=== PATIENT | male | born 1955 | race Caucasian/White ===

== ENCOUNTER 2018-01-29 08:07 | Inpatient (IN) | payer MEDICARE, OTHER ==
[2018-01-29] MEDS ORDERED: Sodium Chloride 0.9% 1,000 ML IV ONE (08:10)
[2018-01-29] MEDS ORDERED: Albuterol/Ipratropium 3.0-0.5 MG/3 ML Neb Soln NEB ONE (08:10)
[2018-01-29] MEDS ORDERED: Sodium Chloride 0.9% 10 ML Syringe FLUSH PRN (08:10)
[2018-01-29] MEDS ORDERED: Ketorolac 30 MG/ML SDV IVPUSH ONE (08:10)
[2018-01-29] MEDS ORDERED: Sodium Chloride 0.9% 2.5 ML Syringe FLUSH PRN (08:10)
--- NOTE | 2018-01-29 10:02 | EDM.PDOC ---
ED HPI GENERAL MEDICAL PROBLEM - General Chief Complaint: Respiratory Problem Stated Complaint: AMBULANCE Time Seen by Provider: 01/29/18 08:10 Source of Information: Reports: Patient History Limitations: Reports: No Limitations - History of Present Illness INITIAL COMMENTS - FREE TEXT/NARRATIVE: History of present illness: []Patient has not been eating solid food for weeks and has not been drinking was brought in by ambulance after his called because he was having shortness of breath. He is a very weak and can barely talk but he denies any fevers or chest pain. Review of systems: As per history of present illness and below otherwise all systems reviewed and negative. Past medical history: As per history of present illness and as reviewed below otherwise noncontributory. Surgical history: As per history of present illness and as reviewed below otherwise noncontributory. Social history: No reported history of drug or alcohol abuse. Family history: As per history of present illness and as reviewed below otherwise noncontributory. Physical exam: General: Well developed, cachectic HEENT: Atraumatic, normocephalic, pupils reactive, negative for conjunctival pallor or scleral icterus, mucous membranes dry, throat clear, neck supple, nontender, trachea midline. Lungs: Wheezing to auscultation, decreased breath sounds equal bilaterally, chest nontender. Respiratory distress Heart: S1S2, regular, negative for clicks, rubs, or JVD. Abdomen: Scaphoid Soft, nondistended, nontender. Negative for masses or hepatosplenomegaly. Negative for costovertebral tenderness. Pelvis: Stable nontender. Genitourinary: Deferred. Rectal: Deferred. Extremities: Atraumatic, negative for cords or calf pain. Neurovascular unremarkable. Neuro: Awake, alert, oriented. Weak lower extremities bilaterally Diagnostics: []CBC shows elevated white count 18,000 with a shift, chemistries show dehydration when necessary and 60 creatinine of 1.3, calcium is elevated at 18 chest x-ray shows hyperinflation left mid opacity suggestive of cancer or adenopathy and possible infiltrate. Therapeutics: []DuoNeb given IV hydration, Toradol for pain Impression: []. Failure To thrive, pneumonia, possible underlying lung malignancy Plan: []Admit for IV hydration and further workup Definitive disposition and diagnosis as appropriate pending reevaluation and review of above. Bilateral Leg Pain Score (Numeric/FACES): 8 - Related Data Allergies Allergy/AdvReac Type Severity Reaction Status Date / Time No Known Allergies Allergy Verified 09/17/14 10:50 Home Meds: Home Meds Albuterol [Ventolin HFA] 1 puff INH ASDIRECTED 01/29/18 [History] Cyclobenzaprine [Flexeril] 5 mg PO TID 01/29/18 [History] Ipratropium/Albuterol Sulfate [Combivent Respimat Inhal [place]] 1 puff INH ASDIRECTED 01/29/18 [History] Mirtazapine 1 tab PO BEDTIME 01/29/18 [History] Tamsulosin [Flomax] 1 cap PO DAILY 01/29/18 [History] Past Medical History Respiratory History: Reports: COPD - Past Surgical History GI Surgical History: Reports: Hernia, Abdominal Other Male Surgeries/Procedures: Urinary Incontinence Social & Family History - Family History Family Medical History: Noncontributory - Tobacco Use Smoking Status *Q: Former Smoker Years of Tobacco use: 55 Packs/Tins Daily: 1 Used Tobacco, but Quit: Yes Month Tobacco Last Used: 12/2017 - Caffeine Use Caffeine Use: Reports: Soda - Recreational Drug Use Recreational Drug Use: No ED ROS GENERAL - Review of Systems Review Of Systems: See Below (The history of present illness) ED EXAM, GENERAL - Physical Exam Exam: See Below (See history of present illness) Course - Vital Signs Last Recorded V/S: Last Vital Signs Temp 98.4 F 01/29/18 11:40 Pulse 106 H 01/29/18 11:40 Resp 26 H 01/29/18 11:40 BP 140/101 H 01/29/18 11:40 Pulse Ox 100 01/29/18 12:06 - Orders/Labs/Meds Orders: Active Orders 24 hr Category Date Time Status EKG Documentation Completion [RC] STAT Care 01/29/18 10:04 Active RT Aerosol Therapy [RC] ASDIRECTED Care 01/29/18 08:11 Active Chest 1V Frontal [CR] Stat Exams 01/29/18 08:14 Taken CULTURE BLOOD [BC] Stat Lab 01/29/18 09:23 Results CULTURE BLOOD [BC] Stat Lab 01/29/18 10:53 Results UA W/MICROSCOPIC [URIN] Stat Lab 01/29/18 08:10 Ordered Sodium Chloride 0.9% [Saline Flush] Med 01/29/18 08:10 Active 10 ml FLUSH ASDIRECTED PRN Sodium Chloride 0.9% [Saline Flush] Med 01/29/18 08:10 Active 2.5 ml FLUSH ASDIRECTED PRN Blood Culture x2 Reflex Set [OM.PC] Stat Ot 01/29/18 10:08 Ordered Saline Lock Insert [OM.PC] Stat Ot 01/29/18 08:10 Ordered Medication Orders Acetaminophen (Tylenol) 650 mg PO Q4H PRN PRN Reason: Pain (Mild 1-3)/fever Hydrocodone Bitart/Acetaminophen ([place] 325-5 Mg) 1 tab PO Q4H PRN PRN Reason: Pain (moderate 4-6) Albuterol (Ventolin Hfa) 8 gm INH ASDIRECTED [facility] Albuterol/Ipratropium (Combivent Respimat) 4 gm INH ASDIRECTED [facility] Albuterol/Ipratropium (Duoneb 3.0-0.5 Mg/3 Ml) 3 ml NEB Q6HRRT PRN PRN Reason: Shortness of Breath Cyclobenzaprine HCl (Flexeril) 5 mg PO TID [facility] Last Admin: 01/29/18 13:06 Dose: 5 mg Heparin Sodium (Porcine) (Heparin Sodium) 5,000 units SUBCUT Q12H [facility] Last Admin: 01/29/18 12:59 Dose: 5,000 units Sodium Chloride (Normal Saline) 1,000 mls @ 250 mls/hr IV ASDIRECTED [facility] Last Admin: 01/29/18 12:56 Dose: 250 mls/hr Ceftriaxone Sodium/Dextrose 1 (gm/ Premix) 50 mls @ 100 mls/hr IV Q24H [facility] Azithromycin 500 mg/ Sodium (Chloride) 250 mls @ 250 mls/hr IV Q24H [facility] Last Admin: 01/29/18 14:03 Dose: 250 mls/hr Mirtazapine (Remeron) 15 mg PO BEDTIME [facility] Morphine Sulfate (Morphine) 2 mg IVPUSH Q2H PRN PRN Reason: Pain (severe 7-10) Stop: 01/30/18 11:42 Nicotine (Habitrol) 7 mg TRDERM Q24H [facility] Ondansetron HCl (Zofran Odt) 4 mg PO Q4H PRN PRN Reason: nausea, able to take PO Ondansetron HCl (Zofran) 4 mg IVPUSH Q4H PRN PRN Reason: Nausea Sodium Chloride (Saline Flush) 10 ml FLUSH ASDIRECTED PRN PRN Reason: Keep Vein Open Sodium Chloride (Saline Flush) 2.5 ml FLUSH ASDIRECTED PRN PRN Reason: Keep Vein Open Labs: Laboratory Tests 01/29/18 01/29/18 01/29/18 Range/Units 08:47 09:37 09:37 WBC 18.83 H (4.0-11.0) K/uL RBC 6.31 H (4.50-5.90) M/uL Hgb 17.7 H (13.0-17.0) g/dL Hct 53.7 H (38.0-50.0) % MCV 85.1 (80.0-98.0) fL MCH 28.1 (27.0-32.0) pg MCHC 33.0 (31.0-37.0) g/dL RDW Std Deviation 44.3 (28.0-62.0) fl RDW Coeff of Darnell 15 (11.0-15.0) % Plt Count 157 (150-400) K/uL MPV 11.00 (7.40-12.00) fL Neut % (Auto) 88.0 H (48.0-80.0) % Lymph % (Auto) 5.5 L (16.0-40.0) % [place] % (Auto) 6.4 (0.0-15.0) % Eos % (Auto) 0.0 (0.0-7.0) % Baso % (Auto) 0.1 (0.0-1.5) % Neut # (Auto) 16.6 H (1.4-5.7) K/uL Lymph # (Auto) 1.0 (0.6-2.4) K/uL [place] # (Auto) 1.2 H (0.0-0.8) K/uL Eos # (Auto) 0.0 (0.0-0.7) K/uL Baso # (Auto) 0.0 (0.0-0.1) K/uL Nucleated RBC % 0.0 /100WBC Nucleated RBCs # 0 K/uL Sodium 141 (136-148) mmol/L Potassium 4.4 (3.5-5.1) mmol/L Chloride 102 (98-107) mmol/L Carbon Dioxide 24.3 (21.0-32.0) mmol/L BUN 69 H (7.0-18.0) mg/dL Creatinine 1.3 (0.8-1.3) mg/dL Est Cr Clr Drug Dosing 29.46 mL/min Estimated GFR (MDRD) 55.6 ml/min Glucose 102 (74-106) mg/dL Calcium 18.1 H (8.5-10.1) mg/dL Phosphorus 4.9 H (2.6-4.7) mg/dL Magnesium 1.9 (1.5-2.0) mg/dL Total Bilirubin 0.6 (0.2-1.0) mg/dL AST 35 (15-37) IU/L ALT 25 (14-63) IU/L Alkaline Phosphatase 109 (46-116) U/L Total Protein 6.8 (6.4-8.2) g/dL Albumin 3.0 L (3.4-5.0) g/dL Globulin 3.8 H (2.0-3.5) g/dL Albumin/Globulin Ratio 0.8 L (1.3-2.8) Meds: Medications Generic Name Dose Route Start Last Admin Trade Name Freq PRN Reason Stop Dose Admin Acetaminophen 650 mg 01/29/18 11:40 Tylenol PO Q4H PRN Pain (Mild 1-3)/fever Hydrocodone Bitart/Acetaminophen 1 tab 01/29/18 11:40 [place] 325-5 Mg PO Q4H PRN Pain (moderate 4-6) Albuterol 8 gm 01/29/18 12:15 Ventolin Hfa INH ASDIRECTED RASHIDA Albuterol/Ipratropium 4 gm 01/29/18 12:15 Combivent Respimat INH ASDIRECTED RASHIDA Albuterol/Ipratropium 3 ml 01/29/18 12:05 Duoneb 3.0-0.5 Mg/3 Ml NEB Q6HRRT PRN Shortness of Breath Cyclobenzaprine HCl 5 mg 01/29/18 14:00 01/29/18 13:06 Flexeril PO 5 mg TID RASHIDA Administration Heparin Sodium (Porcine) 5,000 units 01/29/18 11:45 01/29/18 12:59 Heparin Sodium SUBCUT 5,000 units Q12H RASHIDA Administration Sodium Chloride 1,000 mls @ 250 mls/hr 01/29/18 11:15 01/29/18 12:56 Normal Saline IV 250 mls/hr ASDIRECTED RASHIDA Administration Ceftriaxone Sodium/Dextrose 1 50 mls @ 100 mls/hr 01/30/18 11:00 gm/ Premix IV Q24H RASHIDA Azithromycin 500 mg/ Sodium 250 mls @ 250 mls/hr 01/29/18 14:02 01/29/18 14: 03 Chloride IV 250 mls/hr Q24H RASHIDA Administration Mirtazapine 15 mg 01/29/18 21:00 Remeron PO BEDTIME RASHIDA Morphine Sulfate 2 mg 01/29/18 11:40 Morphine IVPUSH 01/30/18 11:42 Q2H PRN Pain (severe 7-10) Nicotine 7 mg 01/30/18 09:00 Habitrol TRDERM Q24H RASHIDA Ondansetron HCl 4 mg 01/29/18 11:40 Zofran Odt PO Q4H PRN nausea, able to take PO Ondansetron HCl 4 mg 01/29/18 11:40 Zofran IVPUSH Q4H PRN Nausea Sodium Chloride 10 ml 01/29/18 08:10 Saline Flush FLUSH ASDIRECTED PRN Keep Vein Open Sodium Chloride 2.5 ml 01/29/18 08:10 Saline Flush FLUSH ASDIRECTED PRN Keep Vein Open Discontinued Medications Generic Name Dose Route Start Last Admin Trade Name Freq PRN Reason Stop Dose Admin Albuterol/Ipratropium 3 ml 01/29/18 08:10 01/29/18 08:53 Duoneb 3.0-0.5 Mg/3 Ml NEB 01/29/18 08:11 3 ml ONETIME ONE Administration Sodium Chloride 1,000 mls @ 999 mls/hr 01/29/18 08:10 01/29/18 08:49 Normal Saline IV 01/29/18 09:10 250 mls/hr .Bolus ONE Administration Ceftriaxone Sodium/Dextrose 1 50 mls @ 100 mls/hr 01/29/18 10:19 01/29/18 10: 58 gm/ Premix IV 01/29/18 10:48 100 mls/hr ONETIME ONE Administration Azithromycin 500 mg/ Sodium 100 mls @ 100 mls/hr 01/29/18 13:30 01/29/18 14: 42 Chloride IV Not Given Q24H [facility] Ketorolac Tromethamine 15 mg 01/29/18 08:10 01/29/18 08:45 Toradol IVPUSH 01/29/18 08:11 15 mg ONETIME ONE Administration Departure - Departure Time of Disposition: 10:18 Disposition: Admitted As Inpatient 64 Condition: Good Clinical Impression: Failure to thrive, Pneumonia, Lung mass - Discharge Information - My Orders Last 24 Hours: My Active Orders 01/29/18 08:10 UA W/MICROSCOPIC [URIN] Stat Sodium Chloride 0.9% [Saline Flush] 10 ml FLUSH ASDIRECTED PRN Sodium Chloride 0.9% [Saline Flush] 2.5 ml FLUSH ASDIRECTED PRN Saline Lock Insert [OM.PC] Stat 01/29/18 08:11 RT Aerosol Therapy [RC] ASDIRECTED 01/29/18 08:14 Chest 1V Frontal [CR] Stat 01/29/18 09:23 CULTURE BLOOD [BC] Stat 01/29/18 10:04 EKG Documentation Completion [RC] STAT 01/29/18 10:08 Blood Culture x2 Reflex Set [OM.PC] Stat 01/29/18 10:53 CULTURE BLOOD [BC] Stat - Assessment/Plan Last 24 Hours: My Active Orders 01/29/18 08:10 UA W/MICROSCOPIC [URIN] Stat Sodium Chloride 0.9% [Saline Flush] 10 ml FLUSH ASDIRECTED PRN Sodium Chloride 0.9% [Saline Flush] 2.5 ml FLUSH ASDIRECTED PRN Saline Lock Insert [OM.PC] Stat 01/29/18 08:11 RT Aerosol Therapy [RC] ASDIRECTED 01/29/18 08:14 Chest 1V Frontal [CR] Stat 01/29/18 09:23 CULTURE BLOOD [BC] Stat 01/29/18 10:04 EKG Documentation Completion [RC] STAT 01/29/18 10:08 Blood Culture x2 Reflex Set [OM.PC] Stat 01/29/18 10:53 CULTURE BLOOD [BC] Stat
--- NOTE | 2018-01-29 10:13 | PCM.HP ---
H&P History of Present Illness - General Date of Service: 01/29/18 Admit Problem/Dx: Admission Diagnosis/Problem Admission Diagnosis/Problem Failure to thrive Source of Information: Patient, Family, Provider History Limitations: Reports: No Limitations - History of Present Illness Initial Comments - Free Text/Narative: 62-year-old male presenting to emergency department by EMS with chief complaint of fatigue and loss of appetite for multiple weeks with past medical history of severe COPD on home O2, BPH, and chronic back pain. Patient presented to emergency department by ambulance after his called secondary to patient having increased shortness of breath. He was also noted to be very weak and could barely talk. states that he has been not eating for the past several weeks and only drinking in some fluids. He denies any chest pain, palpitations, fever, chills, diarrhea, syncopal episodes, or focal neurologic deficits. Patient has a history of severe COPD and is on home oxygen from anywhere from 2-4 L per nasal cannula. He is treated at the [facility]. Emergency department: Leukocytosis of 18.8 3K, severe hypercalcemia of 18.1 with albumin low at 3.0 resulting in corrected calcium of 18.9. Chest x-ray revealing markedly hyperinflated findings consistent with COPD with moderate emphysematous changes. There was also a moderately large sized masslike opacity projected in the left mid chest medially that covers 8-9 cm most consistent with mass and/or adenopathy. Malignancy could not be excluded specifically a primary lung carcinoma with left hilar adenopathy. CT with IV contrast was suggested. There were also components of pneumonia in the left perihilar region. In addition there are small nodular opacities right mid lung lateral that were nonspecific. Patient was admitted for suspected community acquired pneumonia and failure to thrive. Bilateral Leg Pain Score (Numeric/FACES): 8 - Related Data Allergies/Adverse Reactions: Allergies Allergy/AdvReac Type Severity Reaction Status Date / Time No Known Allergies Allergy Verified 09/17/14 10:50 Home Medications: Home Meds Albuterol [Ventolin HFA] 1 puff INH ASDIRECTED 01/29/18 [History] Cyclobenzaprine [Flexeril] 5 mg PO TID 01/29/18 [History] Ipratropium/Albuterol Sulfate [Combivent Respimat Inhal [place]] 1 puff INH ASDIRECTED 01/29/18 [History] Mirtazapine 1 tab PO BEDTIME 01/29/18 [History] Tamsulosin [Flomax] 1 cap PO DAILY 01/29/18 [History] Past Medical History Respiratory History: Reports: COPD - Past Surgical History GI Surgical History: Reports: Hernia, Abdominal Other Male Surgeries/Procedures: Urinary Incontinence Social & Family History - Family History Family Medical History: Noncontributory - Tobacco Use Smoking Status *Q: Former Smoker Years of Tobacco use: 55 Packs/Tins Daily: 1 Used Tobacco, but Quit: Yes Month Tobacco Last Used: 12/2017 - Caffeine Use Caffeine Use: Reports: Soda - Recreational Drug Use Recreational Drug Use: No H&P Review of Systems - Review of Systems: Review Of Systems: See Below General: Reports: Malaise, Weakness, Fatigue, Weight Loss (50 ). Denies: Fever , Chills HEENT: Reports: Dysphasia. Denies: Headaches, Sore Throat Pulmonary: Reports: Shortness of Breath, Wheezing, Cough. Denies: Sputum Cardiovascular: Denies: Chest Pain, Palpitations, Edema Gastrointestinal: Reports: Nausea. Denies: Abdominal Pain, Black Stool, Bloody Stool, Vomiting Genitourinary: Denies: Dysuria, Hematuria Musculoskeletal: Reports: Back Pain, Leg Pain. Denies: Neck Pain Skin: Reports: Dryness. Denies: Cyanosis Psychiatric: Reports: Mood Lability. Denies: Confusion, Depression Neurological: Reports: Difficulty Walking. Denies: Confusion, Dizziness, Headache Hematologic/Lymphatic: Denies: Anemia Immunologic: Denies: Anaphylaxis Exam - Exam Exam: See Below - Vital Signs Vital Signs: Last Vital Signs Temp 97.7 F 01/29/18 08:10 Pulse 116 H 01/29/18 08:10 Resp 36 H 01/29/18 08:10 BP 150/84 H 01/29/18 08:10 Pulse Ox 100 01/29/18 08:10 Weight: 36.287 kg - Exam Quality Assessment: Supplemental Oxygen, DVT Prophylaxis General: Alert, Oriented, Cooperative HEENT: Conjunctiva Clear, EACs Clear, EOMI, Hearing Intact, Mucosa Moist & [place] , Nares Patent, Normal Nasal Septum, Posterior Pharynx Clear, PERRLA Neck: Supple, Trachea Midline, 2 Lungs: Decreased Breath Sounds, Crackles, Rales, Wheezing Cardiovascular: Regular Rhythm, Normal S1, Normal S2, Tachycardia, Systolic Murmur GI/Abdominal Exam: Normal Bowel Sounds, Soft, Non-Tender, No Organomegaly, No Distention (Male) Exam: Deferred Rectal (Males) Exam: Deferred Back Exam: Vertebral Tenderness Extremities: Normal Inspection, Non-Tender, No Pedal Edema, Normal Capillary Refill Peripheral Pulses: 1+: Radial (L), Radial (R), Posterior Tibial (L), Posterior Tibial (R), Dorsalis Pedis (L), Dorsalis Pedis (R) Skin: Warm, Dry, Intact Neurological: Cranial Nerves Intact Neuro Extensive - Mental Status: Alert, Oriented x3, Normal Mood/Affect, Normal Cognition Neuro Extensive - Motor, Sensory, Reflexes: CN II-XII Intact Psychiatric: Alert, Normal Affect, Labile Mood - Patient Data Lab Results Last 24 hrs: Laboratory Results - last 24 hr 01/29/18 01/29/18 Range/Units 08:47 09:37 WBC 18.83 H (4.0-11.0) K/uL RBC 6.31 H (4.50-5.90) M/uL Hgb 17.7 H (13.0-17.0) g/dL Hct 53.7 H (38.0-50.0) % MCV 85.1 (80.0-98.0) fL MCH 28.1 (27.0-32.0) pg MCHC 33.0 (31.0-37.0) g/dL RDW Std Deviation 44.3 (28.0-62.0) fl RDW Coeff of Darnell 15 (11.0-15.0) % Plt Count 157 (150-400) K/uL MPV 11.00 (7.40-12.00) fL Neut % (Auto) 88.0 H (48.0-80.0) % Lymph % (Auto) 5.5 L (16.0-40.0) % [place] % (Auto) 6.4 (0.0-15.0) % Eos % (Auto) 0.0 (0.0-7.0) % Baso % (Auto) 0.1 (0.0-1.5) % Neut # (Auto) 16.6 H (1.4-5.7) K/uL Lymph # (Auto) 1.0 (0.6-2.4) K/uL [place] # (Auto) 1.2 H (0.0-0.8) K/uL Eos # (Auto) 0.0 (0.0-0.7) K/uL Baso # (Auto) 0.0 (0.0-0.1) K/uL Nucleated RBC % 0.0 /100WBC Nucleated RBCs # 0 K/uL Sodium 141 (136-148) mmol/L Potassium 4.4 (3.5-5.1) mmol/L Chloride 102 (98-107) mmol/L Carbon Dioxide 24.3 (21.0-32.0) mmol/L BUN 69 H (7.0-18.0) mg/dL Creatinine 1.3 (0.8-1.3) mg/dL Est Cr Clr Drug Dosing 29.46 mL/min Estimated GFR (MDRD) 55.6 ml/min Glucose 102 (74-106) mg/dL Calcium 18.1 H (8.5-10.1) mg/dL Total Bilirubin 0.6 (0.2-1.0) mg/dL AST 35 (15-37) IU/L ALT 25 (14-63) IU/L Alkaline Phosphatase 109 (46-116) U/L Total Protein 6.8 (6.4-8.2) g/dL Albumin 3.0 L (3.4-5.0) g/dL Globulin 3.8 H (2.0-3.5) g/dL Albumin/Globulin Ratio 0.8 L (1.3-2.8) Result Diagrams: 01/29/18 08:47 01/29/18 09:37 *Q Meaningful Use (ADM) - VTE *Q VTE Criteria *Q: - Stroke *Q Stroke Criteria *Q: - AMI *Q AMI Criteria *Q: - Problem List (1) Community acquired pneumonia SNOMED Code(s): 167032537 ICD Code: J18.9 - PNEUMONIA, UNSPECIFIED ORGANISM Status: Acute Priority : High Current Visit: Yes Qualifiers: Laterality: left Lung location: unspecified part of lung Qualified Code(s ): J18.9 - Pneumonia, unspecified organism (2) Hypercalcemia of malignancy SNOMED Code(s): 92725449 ICD Code: E83.52 - HYPERCALCEMIA Status: Suspected Priority: High Current Visit: Yes (3) End stage chronic obstructive pulmonary disease SNOMED Code(s): 581129132 ICD Code: J44.9 - CHRONIC OBSTRUCTIVE PULMONARY DISEASE, UNSPECIFIED Status : Chronic Priority: Medium Current Visit: Yes (4) Chronic back pain SNOMED Code(s): 894758889 ICD Code: M54.9 - DORSALGIA, UNSPECIFIED; G89.29 - OTHER CHRONIC PAIN Status: Chronic Priority: Low Current Visit: Yes Qualifiers: Back pain location: low back pain Back pain laterality: bilateral Sciatica presence: with sciatica Sciatica laterality: sciatica laterality unspecified Qualified Code(s): M54.40 - Lumbago with sciatica, unspecified side; G89.29 - Other chronic pain; G89.29 - Other chronic pain (5) Failure to thrive SNOMED Code(s): 63363986 ICD Code: [id number] - Status: Acute Priority: High Current Visit: Yes Qualifiers: Failure to thrive age range: in adult Qualified Code(s): R62.7 - Adult failure to thrive Problem List Initiated/Reviewed/Updated: Yes Orders Last 24hrs: Active Orders 24 hr Category Date Time Status Patient Status [ADT] Stat ADT 01/29/18 10:09 Active EKG Documentation Completion [RC] STAT Care 01/29/18 10:04 Active RT Aerosol Therapy [RC] ASDIRECTED Care 01/29/18 08:11 Active Chest 1V Frontal [CR] Stat Exams 01/29/18 08:14 Taken CULTURE BLOOD [BC] Stat Lab 01/29/18 10:08 Ordered CULTURE BLOOD [BC] Stat Lab 01/29/18 10:08 Ordered UA W/MICROSCOPIC [URIN] Stat Lab 01/29/18 08:10 Ordered Sodium Chloride 0.9% [Saline Flush] Med 01/29/18 08:10 Active 10 ml FLUSH ASDIRECTED PRN Sodium Chloride 0.9% [Saline Flush] Med 01/29/18 08:10 Active 2.5 ml FLUSH ASDIRECTED PRN Blood Culture x2 Reflex Set [OM.PC] Stat Oth 01/29/18 10:08 Ordered Saline Lock Insert [OM.PC] Stat Oth 01/29/18 08:10 Ordered Medication Orders Sodium Chloride (Saline Flush) 10 ml FLUSH ASDIRECTED PRN PRN Reason: Keep Vein Open Sodium Chloride (Saline Flush) 2.5 ml FLUSH ASDIRECTED PRN PRN Reason: Keep Vein Open Assessment/Plan Comment:: 62-year-old male admitted 01/29/18 for suspected community acquired pneumonia and failure to thrive found to have severe hypercalcemia with past medical history of COPD and long-term smoking. Community acquired pneumonia: Leukocytosis of 18.83k with increased shortness of breath most likely suggesting CAP. Will treat with azithromycin and Rocephin. Continue to monitor closely and have ordered DuoNeb's. Patient currently is on 2 L per nasal cannula and will hold off on steroids at this time but may need them in the future. Failure to thrive/lung mass: Patient has several weeks of decreased oral intake. He appears cachectic. Patient is treated at the [facility] and states that they did get a chest CT in November. We were able to get those records which showed a solitary left perihilar 5.7 cm pulmonary mass consistent with primary lung cancer. The mass contacts and invades the mediastinum and left hilum but otherwise there were no enlarged mediastinal lymph nodes or evidence of distal metastatic disease. There was also findings of hyperinflation of the lungs evident of emphysema. I did discuss this with the patient and his who stated that they "had a feeling" that he had cancer. Patient states that he does want to be DNR DNI at this time. I did suggest that we should talk to oncology and have them discuss further studies and options with them which there amiable to. We'll hold off at this time from getting CT but may consider CT with contrast for further evaluation of lung mass. does also mention a 50 lb weight loss over the past several months. Hypercalcemia: Most likely related to malignancy. Severe 18.9 corrected calcium. Will start IV normal saline at 250 mL per hour with goal of urine output of 100-150 mL/h. Patient does not have any sign of renal or heart failure so we'll hold off on using loupe diuretics at this time. We have rechecked calcium which is still elevated at 16. We will begin calcitonin 4 units per kilogram IM every 12 hours as well as zoledronic acid 4 mg IV over 15 minutes. Will monitor Calcium q 4 hrs. I've also ordered parathyroid hormone but most likely related to malignancy. Severe COPD: Currently patient is on his regular home oxygen of 2 L per nasal cannula. Will watch closely and have ordered DuoNeb's. Will consider steroids if any further was worsening of respiratory status. Will restart his home medications. VTE: Heparin, SCD Dispo:3-4 days pending
[2018-01-29] MEDS ORDERED: cefTRIAXone 1 GM in Premix Bag 1 BAG IV ONE (10:19)
[2018-01-29] MEDS ORDERED: Ondansetron 4 MG Tab.DIS PO PRN (11:40)
[2018-01-29] MEDS ORDERED: Acetaminophen/HYDROcodone 325-5 MG Tab PO PRN (11:40)
[2018-01-29] MEDS ORDERED: Ondansetron 4 MG/2 ML SDV IVPUSH PRN (11:40)
[2018-01-29] MEDS ORDERED: Acetaminophen 325 MG Tab PO PRN (11:40)
[2018-01-29] MEDS ORDERED: Morphine 2 MG/ML Syringe IVPUSH PRN (11:40)
[2018-01-29] MEDS ORDERED: Albuterol/Ipratropium 3.0-0.5 MG/3 ML Neb Soln NEB PRN (12:05)
[2018-01-29] MEDS ORDERED: Albuterol/Ipratropium 4 GM Inhalation Spray INH SCH (12:15)
[2018-01-29] MEDS ORDERED: Albuterol 8 GM Inhaler INH SCH (12:15)
[2018-01-29] MEDS: Sodium Chloride 0.9% 1,000 ML IV SCH ×3 (12:56→22:41)
[2018-01-29] MEDS: Heparin Sodium 5,000 Units/ML Vial SUBCUT SCH (12:59)
[2018-01-29] MEDS: Cyclobenzaprine 10 MG Tab PO SCH ×2 (13:06→21:38)
[2018-01-29] MEDS ORDERED: Azithromycin 500 MG in Sodium Chloride 0.9% 250 ML IV SCH (14:02)
[2018-01-29] MEDS ORDERED: Calcitonin (Salmon) 200 Units/ML 2 ML MDV SUBCUT ONE (17:00)
[2018-01-29] MEDS ORDERED: Zoledronic Acid in Water 4 MG in Premix Bag 1 BAG IV ONE ×2 (17:00)
[2018-01-29] MEDS ORDERED: Mirtazapine 15 MG Tab PO SCH (21:00)
[2018-01-30] MEDS: Heparin Sodium 5,000 Units/ML Vial SUBCUT SCH ×2 (01:11→01:14)
[2018-01-30] MEDS: Sodium Chloride 0.9% 1,000 ML IV SCH (02:50)
[2018-01-30] MEDS: Cyclobenzaprine 10 MG Tab PO SCH (06:27)
[2018-01-30] MEDS: Nicotine 7 MG/24 Hr Patch TRDERM SCH (08:27)
[2018-01-30] MEDS ORDERED: Sodium Polystyrene Sulfonate 15 GM/60 ML Susp 60 ML Bot PO ONE (08:54)
[2018-01-30] MEDS ORDERED: Dextrose 5%-0.45% NaCl 1,000 ML IV SCH (09:00)
[2018-01-30] MEDS ORDERED: Insulin Regular, Human 100 Units/ML 10 ML Vial IVPUSH ONE (09:03)
[2018-01-30] MEDS ORDERED: 50% Dextrose in Water 50 ML Syringe IVPUSH ONE (09:03)
[2018-01-30] MEDS ORDERED: LORazepam 2 MG/ML SDV IVPUSH PRN (10:39)
[2018-01-30] MEDS ORDERED: Morphine 2 MG/ML Syringe IVPUSH PRN (10:40)
--- NOTE | 2018-01-30 10:41 | PCM.PN ---
- General Info Date of Service: 01/30/18 Admission Dx/Problem (Free Text): Admission Diagnosis/Problem Admission Diagnosis/Problem Failure to thrive Subjective Update: Nearly unresponsive, opens eyes to pain, does not verbally respond. not at bedside early this morning. - Patient Data Vitals - Most Recent: Last Vital Signs Temp 97.6 F 01/30/18 08:00 Pulse 76 01/30/18 08:00 Resp 18 01/30/18 08:00 BP 101/87 01/30/18 08:00 Pulse Ox 95 01/30/18 08:00 Weight - Most Recent: 36.287 kg I&O - Last 24 Hours: Intake & Output 01/29/18 01/30/18 01/30/18 22:59 06:59 14:59 Intake Total 1310 3306 Balance 1310 3306 Lab Results Last 24 Hours: Laboratory Results - last 24 hr 01/29/18 01/29/18 01/29/18 Range/Units 14:31 18:02 21:52 WBC (4.0-11.0) K/uL RBC (4.50-5.90) M/uL Hgb (13.0-17.0) g/dL Hct (38.0-50.0) % MCV (80.0-98.0) fL MCH (27.0-32.0) pg MCHC (31.0-37.0) g/dL RDW Std Deviation (28.0-62.0) fl RDW Coeff of Darnell (11.0-15.0) % Plt Count (150-400) K/uL MPV (7.40-12.00) fL Neut % (Auto) (48.0-80.0) % Lymph % (Auto) (16.0-40.0) % Bradley % (Auto) (0.0-15.0) % Eos % (Auto) (0.0-7.0) % Baso % (Auto) (0.0-1.5) % Neut # (Auto) (1.4-5.7) K/uL Lymph # (Auto) (0.6-2.4) K/uL Bradley # (Auto) (0.0-0.8) K/uL Eos # (Auto) (0.0-0.7) K/uL Baso # (Auto) (0.0-0.1) K/uL Nucleated RBC % /100WBC Nucleated RBCs # K/uL Sodium (136-148) mmol/L Potassium (3.5-5.1) mmol/L Chloride (98-107) mmol/L Carbon Dioxide (21.0-32.0) mmol/L BUN (7.0-18.0) mg/dL Creatinine (0.8-1.3) mg/dL Est Cr Clr Drug Dosing mL/min Estimated GFR (MDRD) ml/min Glucose (74-106) mg/dL POC Glucose (60-110) mg/dL Calcium 16.0 H 14.3 H 12.3 H (8.5-10.1) mg/dL Total Bilirubin (0.2-1.0) mg/dL AST (15-37) IU/L ALT (14-63) IU/L Alkaline Phosphatase (46-116) U/L Total Protein (6.4-8.2) g/dL Albumin (3.4-5.0) g/dL Globulin (2.0-3.5) g/dL Albumin/Globulin Ratio (1.3-2.8) 01/30/18 01/30/18 01/30/18 Range/Units 02:10 06:07 06:07 WBC 17.35 H (4.0-11.0) K/uL RBC 4.63 (4.50-5.90) M/uL Hgb 12.8 L (13.0-17.0) g/dL Hct 40.5 (38.0-50.0) % MCV 87.5 (80.0-98.0) fL MCH 27.6 (27.0-32.0) pg MCHC 31.6 (31.0-37.0) g/dL RDW Std Deviation 47.1 (28.0-62.0) fl RDW Coeff of Darnell 15 (11.0-15.0) % Plt Count 101 L (150-400) K/uL MPV 10.40 (7.40-12.00) fL Neut % (Auto) 91.5 H (48.0-80.0) % Lymph % (Auto) 4.6 L (16.0-40.0) % Bradley % (Auto) 3.9 (0.0-15.0) % Eos % (Auto) 0.0 (0.0-7.0) % Baso % (Auto) 0.0 (0.0-1.5) % Neut # (Auto) 15.9 H (1.4-5.7) K/uL Lymph # (Auto) 0.8 (0.6-2.4) K/uL Bradley # (Auto) 0.7 (0.0-0.8) K/uL Eos # (Auto) 0.0 (0.0-0.7) K/uL Baso # (Auto) 0.0 (0.0-0.1) K/uL Nucleated RBC % 0.0 /100WBC Nucleated RBCs # 0 K/uL Sodium (136-148) mmol/L Potassium (3.5-5.1) mmol/L Chloride (98-107) mmol/L Carbon Dioxide (21.0-32.0) mmol/L BUN (7.0-18.0) mg/dL Creatinine (0.8-1.3) mg/dL Est Cr Clr Drug Dosing mL/min Estimated GFR (MDRD) ml/min Glucose (74-106) mg/dL POC Glucose (60-110) mg/dL Calcium 11.2 H 11.0 H (8.5-10.1) mg/dL Total Bilirubin (0.2-1.0) mg/dL AST (15-37) IU/L ALT (14-63) IU/L Alkaline Phosphatase (46-116) U/L Total Protein (6.4-8.2) g/dL Albumin (3.4-5.0) g/dL Globulin (2.0-3.5) g/dL Albumin/Globulin Ratio (1.3-2.8) 01/30/18 01/30/18 Range/Units 07:12 08:45 WBC (4.0-11.0) K/uL RBC (4.50-5.90) M/uL Hgb (13.0-17.0) g/dL Hct (38.0-50.0) % MCV (80.0-98.0) fL MCH (27.0-32.0) pg MCHC (31.0-37.0) g/dL RDW Std Deviation (28.0-62.0) fl RDW Coeff of Darnell (11.0-15.0) % Plt Count (150-400) K/uL MPV (7.40-12.00) fL Neut % (Auto) (48.0-80.0) % Lymph % (Auto) (16.0-40.0) % Bradley % (Auto) (0.0-15.0) % Eos % (Auto) (0.0-7.0) % Baso % (Auto) (0.0-1.5) % Neut # (Auto) (1.4-5.7) K/uL Lymph # (Auto) (0.6-2.4) K/uL Bradley # (Auto) (0.0-0.8) K/uL Eos # (Auto) (0.0-0.7) K/uL Baso # (Auto) (0.0-0.1) K/uL Nucleated RBC % /100WBC Nucleated RBCs # K/uL Sodium 141 (136-148) mmol/L Potassium 6.6 H (3.5-5.1) mmol/L Chloride 110 H (98-107) mmol/L Carbon Dioxide 18.0 L (21.0-32.0) mmol/L BUN 71 H (7.0-18.0) mg/dL Creatinine 1.4 H (0.8-1.3) mg/dL Est Cr Clr Drug Dosing 27.36 mL/min Estimated GFR (MDRD) 51.0 ml/min Glucose 54 L (74-106) mg/dL POC Glucose 51 L (60-110) mg/dL Calcium 10.8 H (8.5-10.1) mg/dL Total Bilirubin 0.4 (0.2-1.0) mg/dL AST 666 H (15-37) IU/L ALT 195 H (14-63) IU/L Alkaline Phosphatase 86 (46-116) U/L Total Protein 5.1 L (6.4-8.2) g/dL Albumin 2.2 L (3.4-5.0) g/dL Globulin 2.9 (2.0-3.5) g/dL Albumin/Globulin Ratio 0.8 L (1.3-2.8) [place] Results Last 24 Hours: Microbiology 01/29/18 10:53 Anaerobic Blood Culture - Final Blood - Venous - Lab Draw Med Orders - Current: Current Medications Albuterol (Ventolin Hfa) 8 gm INH ASDIRECTED [facility] Albuterol/Ipratropium (Combivent Respimat) 4 gm INH ASDIRECTED [facility] Albuterol/Ipratropium (Duoneb 3.0-0.5 Mg/3 Ml) 3 ml NEB Q6HRRT PRN PRN Reason: Shortness of Breath Lorazepam (Ativan) 1 mg IVPUSH Q4H PRN PRN Reason: agitation/anxiety Morphine Sulfate (Morphine) 2 - 5 mg IVPUSH Q2H PRN PRN Reason: Pain (severe 7-10) Stop: 01/30/18 11:42 Nicotine (Habitrol) 7 mg TRDERM Q24H [facility] Last Admin: 01/30/18 08:27 Dose: 7 mg Ondansetron HCl (Zofran) 4 mg IVPUSH Q4H PRN PRN Reason: Nausea Sodium Chloride (Saline Flush) 10 ml FLUSH ASDIRECTED PRN PRN Reason: Keep Vein Open Sodium Chloride (Saline Flush) 2.5 ml FLUSH ASDIRECTED PRN PRN Reason: Keep Vein Open Discontinued Medications Acetaminophen (Tylenol) 650 mg PO Q4H PRN PRN Reason: Pain (Mild 1-3)/fever Hydrocodone Bitart/Acetaminophen ([place] 325-5 Mg) 1 tab PO Q4H PRN PRN Reason: Pain (moderate 4-6) Albuterol/Ipratropium (Duoneb 3.0-0.5 Mg/3 Ml) 3 ml NEB ONETIME ONE Stop: 01/29/18 08:11 Last Admin: 01/29/18 08:53 Dose: 3 ml Calcitonin [place] (Miacalcin) 140 units SUBCUT ONETIME ONE Stop: 01/29/18 17:01 Last Admin: 01/29/18 17:40 Dose: 140 units Cyclobenzaprine HCl (Flexeril) 5 mg PO TID [facility] Last Admin: 01/30/18 06:27 Dose: Not Given Dextrose/Water (Dextrose 50% In Water) 50 ml IVPUSH ONETIME ONE Stop: 01/30/18 09:04 Last Admin: 01/30/18 09:33 Dose: 50 ml Heparin Sodium (Porcine) (Heparin Sodium) 5,000 units SUBCUT Q12H [facility] Last Admin: 01/30/18 01:14 Dose: Not Given Sodium Chloride (Normal Saline) 1,000 mls @ 999 mls/hr IV .Bolus ONE Stop: 01/29/18 09:10 Last Admin: 01/29/18 08:49 Dose: 250 mls/hr Ceftriaxone Sodium/Dextrose 1 (gm/ Premix) 50 mls @ 100 mls/hr IV ONETIME ONE Stop: 01/29/18 10:48 Last Admin: 01/29/18 10:58 Dose: 100 mls/hr Sodium Chloride (Normal Saline) 1,000 mls @ 250 mls/hr IV ASDIRECTED [facility] Last Admin: 01/30/18 02:50 Dose: 250 mls/hr Azithromycin 500 mg/ Sodium (Chloride) 100 mls @ 100 mls/hr IV Q24H [facility] Last Admin: 01/29/18 14:42 Dose: Not Given Ceftriaxone Sodium/Dextrose 1 (gm/ Premix) 50 mls @ 100 mls/hr IV Q24H [facility] Last Admin: 01/30/18 10:10 Dose: 100 mls/hr Azithromycin 500 mg/ Sodium (Chloride) 250 mls @ 250 mls/hr IV Q24H [facility] Last Admin: 01/29/18 14:03 Dose: 250 mls/hr Zoledronic Acid 4 mg/ Premix 100 mls @ 400 mls/hr IV ONETIME ONE Stop: 01/29/18 17:14 Last Admin: 01/29/18 17:23 Dose: 400 mls/hr Dextrose/Sodium Chloride (Dextrose 5%-1/2 Ns) 1,000 mls @ 125 mls/hr IV ASDIRECTED [facility] Last Admin: 01/30/18 09:30 Dose: 125 mls/hr Insulin Human Regular (Novolin R) 5 unit IVPUSH ONETIME ONE Stop: 01/30/18 09:04 Last Admin: 01/30/18 10:04 Dose: 5 units Ketorolac Tromethamine (Toradol) 15 mg IVPUSH ONETIME ONE Stop: 01/29/18 08:11 Last Admin: 01/29/18 08:45 Dose: 15 mg Mirtazapine (Remeron) 15 mg PO BEDTIME [facility] Last Admin: 01/29/18 21:38 Dose: 15 mg Morphine Sulfate (Morphine) 2 mg IVPUSH Q2H PRN PRN Reason: Pain (severe 7-10) Stop: 01/30/18 11:42 Last Admin: 01/29/18 19:57 Dose: 2 mg Ondansetron HCl (Zofran Odt) 4 mg PO Q4H PRN PRN Reason: nausea, able to take PO Sodium Polystyrene Sulfonate (Kayexalate) 15 gm PO ONETIME ONE Stop: 01/30/18 08:55 Last Admin: 01/30/18 09:33 Dose: 15 gm - Exam General: Obtunded, Other (extremely cachetic and pale in appearance) Lungs: Crackles, Rhonchi Cardiovascular: Regular Rate, Regular Rhythm GI/Abdominal Exam: Normal Bowel Sounds, Soft, Non-Tender, No Organomegaly, No Distention, No Abnormal Bruit, No Mass, Pelvis Stable Extremities: Normal Inspection, Non-Tender, No Pedal Edema, Normal Capillary Refill Skin: Ecchymosis (bruising to both legs, with abrasions. No erythema) - Problem List & Annotations (1) Failure to thrive SNOMED Code(s): 66146108 Code(s): QJG8046 - Status: Acute Priority: High Current Visit: Yes Qualifiers: Failure to thrive age range: in adult Qualified Code(s): R62.7 - Adult failure to thrive (2) Hyperkalemia SNOMED Code(s): 47497473 Code(s): E87.5 - HYPERKALEMIA Status: Acute Current Visit: Yes (3) Community acquired pneumonia SNOMED Code(s): 165222446 Code(s): J18.9 - PNEUMONIA, UNSPECIFIED ORGANISM Status: Acute Priority: High Current Visit: Yes Qualifiers: Laterality: left Lung location: unspecified part of lung Qualified Code(s ): J18.9 - Pneumonia, unspecified organism (4) Protein malnutrition SNOMED Code(s): 341868097 Code(s): E46 - UNSPECIFIED PROTEIN-CALORIE MALNUTRITION Status: Acute Current Visit: Yes (5) Lung mass SNOMED Code(s): 868251070 Code(s): R91.8 - OTHER NONSPECIFIC ABNORMAL FINDING OF LUNG FIELD Status: Acute Current Visit: Yes (6) Hypercalcemia of malignancy SNOMED Code(s): 60022954 Code(s): E83.52 - HYPERCALCEMIA Status: Acute Priority: High Current Visit: Yes (7) End stage chronic obstructive pulmonary disease SNOMED Code(s): 307254847 Code(s): J44.9 - CHRONIC OBSTRUCTIVE PULMONARY DISEASE, UNSPECIFIED Status : Chronic Priority: Medium Current Visit: Yes (8) Oxygen dependent SNOMED Code(s): 743159518525 Code(s): Z99.81 - DEPENDENCE ON SUPPLEMENTAL OXYGEN Status: Chronic Current Visit: Yes (9) Chronic respiratory failure SNOMED Code(s): 92366319 Code(s): J96.10 - CHRONIC RESPIRATORY FAILURE, UNSP W HYPOXIA OR HYPERCAPNIA Status: Chronic Current Visit: Yes Qualifiers: Respiratory failure complication: hypoxia Qualified Code(s): J96.11 - Chronic respiratory failure with hypoxia - Problem List Review Problem List Initiated/Reviewed/Updated: Yes - My Orders Last 24 Hours: My Active Orders 01/30/18 08:46 Telemetry Monitoring [Cardiac Monitoring] [RC] . DIRECTED 01/30/18 10:36 Resuscitation Status Routine 01/30/18 10:37 Tab Builder Discontinue [Cardiac Monitoring Discontinue] [RC] Click to Edit 01/30/18 10:39 LORazepam [Ativan] 1 mg IVPUSH Q4H PRN 01/30/18 10:40 Consult to Hospice [CONS] Routine Morphine 2 - 5 mg IVPUSH Q2H PRN Comfort Measures [OM.PC] Routine - Plan Plan:: 62-year-old male admitted 01/29/18 for suspected community acquired pneumonia and failure to thrive found to have severe hypercalcemia with past medical history of COPD and long-term smoking. 1. Failure to thrive/lung mass: Palliative careAppears severely cachectic, 64 lbs. Solitary left perihilar 5.7 cm pulmonary mass consistent with primary lung cancer, the mass contacts and invades the mediastinum and left hilum but otherwise there were no enlarged mediastinal lymph nodes or evidence of distal metastatic disease. There was also findings of hyperinflation of the lungs evident of emphysema. This morning, calcium improved to 11.0, but now hyperkalemic and more lethargic and obtunded this morning. I called , Chandrika to return to the hospital to further talk about care. Patient prognosis is very poor with lung mass with high likelyhood of malignancy. Dr Eng and I in room to speak with patient and , Chandrika. She reports they had talked in the past he has has never wanted aggressive or "heroic measures". He has told his he does not want a feeding tube or chemotherapy, per her report. At this time and with his poor prognosis, his has decided she does not want transfer to another facility and wants Ovidio to be made comfortable. We will discontinue all medications, including IVFs and antibiotics. Start Morphine , Ativan for anxiety, dyspnea, agitation. Will consult Hospice and case management to assist with placement in SNF, but is likely imminent. 2.Severe COPD with chronic respiratory failure and hypoxia: Continues on home oxygen of 2 L per nasal cannula. Continue DuoNebs PRN. VTE prophylaxis: none, Hospice Dispo:3-4 days pending
[2018-01-30] MEDS ORDERED: Hyoscyamine 0.125 MG Tab.SL SL PRN (10:52)
[2018-01-30] MEDS ORDERED: cefTRIAXone 1 GM in Premix Bag 1 BAG IV SCH (11:00)
--- NOTE | 2018-01-30 15:32 | CR ---
EXAM DATE: 01/29/18 PATIENT'S AGE: 62 Patient: ROSARIO LEON Facility: [place], [place] Site . Site : [id number] Study: XRay Chest [id number]/11/2018 8:45:56 AM Ordering Physician: Jackson Loza Final Report: INDICATION: Pain. Shortness of breath. TECHNIQUE: AP portable chest x-ray. FINDINGS: The upper most chest is not entirely included on this film. The lungs are markedly hyperinflated consistent with COPD. Moderate emphysematous changes. Moderately large-sized masslike opacity projected in the left mid chest medially covers an 8-9 cm and is most consistent with mass and/or adenopathy. Malignancy needs to be excluded. Specifically a primary lung carcinoma with left hilar adenopathy should be excluded. CT chest with IV contrast and followup suggested. Some component of pneumonia in the left perihilar region would be a possibility. Small nodular opacity right mid lung laterally nonspecific. Heart size small. Moderate aortic calcification. Mild fibrotic change in the lung apices. Remainder negative. Dictated by Buddy Pereyra MD @ Jan 29 2018 8:48AM (Electronic Signature) Report Signed by Proxy. GRISELDA
[2018-01-30] MEDS: Morphine 2 MG/ML Syringe IVPUSH PRN (20:00)
[2018-01-31] MEDS: Morphine 2 MG/ML Syringe IVPUSH PRN ×3 (03:47→12:29)
[2018-01-31] MEDS: Nicotine 7 MG/24 Hr Patch TRDERM SCH (08:17)
--- NOTE | 2018-01-31 08:22 | PCM.PN ---
- General Info Date of Service: 01/31/18 Admission Dx/Problem (Free Text): Admission Diagnosis/Problem Admission Diagnosis/Problem Failure to thrive Subjective Update: Ovidio is awake, but minimally responsive. reports pain to legs and abdomen. Otherwise no other response. No family at bedside this morning. - Patient Data Vitals - Most Recent: Last Vital Signs Temp 97.9 F 01/31/18 00:00 Pulse 88 01/31/18 00:00 Resp 20 01/31/18 00:00 BP 100/58 L 01/31/18 00:00 Pulse Ox 95 01/31/18 00:00 Weight - Most Recent: 36.287 kg I&O - Last 24 Hours: Intake & Output 01/30/18 01/31/18 01/31/18 22:59 06:59 14:59 Intake Total 400 10 Output Total 500 110 Balance -100 -100 Lab Results Last 24 Hours: Laboratory Results - last 24 hr 01/30/18 01/30/18 Range/Units 08:45 10:19 POC Glucose 51 L 278 H (60-110) mg/dL [place] Results Last 24 Hours: Microbiology 01/29/18 10:53 Aerobic Blood Culture - Preliminary Blood - Venous - Lab Draw NO GROWTH AFTER 1 DAY Anaerobic Blood Culture - Final Med Orders - Current: Current Medications Albuterol/Ipratropium (Duoneb 3.0-0.5 Mg/3 Ml) 3 ml NEB Q6HRRT PRN PRN Reason: Shortness of Breath Last Admin: 01/30/18 15:44 Dose: 3 ml Hyoscyamine (Hyomax-Sl) 0.125 mg SL Q6H PRN PRN Reason: secretions Last Admin: 01/30/18 12:13 Dose: 0.125 mg Lorazepam (Ativan) 1 mg IVPUSH Q4H PRN PRN Reason: agitation/anxiety Morphine Sulfate (Morphine) 0 mg IVPUSH Q1H PRN PRN Reason: Pain (severe 7-10) Last Admin: 01/31/18 03:47 Dose: 2 mg Nicotine (Habitrol) 7 mg TRDERM Q24H [facility] Last Admin: 01/30/18 08:27 Dose: 7 mg Ondansetron HCl (Zofran) 4 mg IVPUSH Q4H PRN PRN Reason: Nausea Sodium Chloride (Saline Flush) 10 ml FLUSH ASDIRECTED PRN PRN Reason: Keep Vein Open Sodium Chloride (Saline Flush) 2.5 ml FLUSH ASDIRECTED PRN PRN Reason: Keep Vein Open Discontinued Medications Acetaminophen (Tylenol) 650 mg PO Q4H PRN PRN Reason: Pain (Mild 1-3)/fever Hydrocodone Bitart/Acetaminophen ([place] 325-5 Mg) 1 tab PO Q4H PRN PRN Reason: Pain (moderate 4-6) Albuterol (Ventolin Hfa) 8 gm INH ASDIRECTED [facility] Albuterol/Ipratropium (Duoneb 3.0-0.5 Mg/3 Ml) 3 ml NEB ONETIME ONE Stop: 01/29/18 08:11 Last Admin: 01/29/18 08:53 Dose: 3 ml Albuterol/Ipratropium (Combivent Respimat) 4 gm INH ASDIRECTED [facility] Calcitonin [place] (Miacalcin) 140 units SUBCUT ONETIME ONE Stop: 01/29/18 17:01 Last Admin: 01/29/18 17:40 Dose: 140 units Cyclobenzaprine HCl (Flexeril) 5 mg PO TID [facility] Last Admin: 01/30/18 06:27 Dose: Not Given Dextrose/Water (Dextrose 50% In Water) 50 ml IVPUSH ONETIME ONE Stop: 01/30/18 09:04 Last Admin: 01/30/18 09:33 Dose: 50 ml Heparin Sodium (Porcine) (Heparin Sodium) 5,000 units SUBCUT Q12H [facility] Last Admin: 01/30/18 01:14 Dose: Not Given Sodium Chloride (Normal Saline) 1,000 mls @ 999 mls/hr IV .Bolus ONE Stop: 01/29/18 09:10 Last Admin: 01/29/18 08:49 Dose: 250 mls/hr Ceftriaxone Sodium/Dextrose 1 (gm/ Premix) 50 mls @ 100 mls/hr IV ONETIME ONE Stop: 01/29/18 10:48 Last Admin: 01/29/18 10:58 Dose: 100 mls/hr Sodium Chloride (Normal Saline) 1,000 mls @ 250 mls/hr IV ASDIRECTED [facility] Last Admin: 01/30/18 02:50 Dose: 250 mls/hr Azithromycin 500 mg/ Sodium (Chloride) 100 mls @ 100 mls/hr IV Q24H [facility] Last Admin: 01/29/18 14:42 Dose: Not Given Ceftriaxone Sodium/Dextrose 1 (gm/ Premix) 50 mls @ 100 mls/hr IV Q24H [facility] Last Admin: 01/30/18 10:10 Dose: 100 mls/hr Azithromycin 500 mg/ Sodium (Chloride) 250 mls @ 250 mls/hr IV Q24H [facility] Last Admin: 01/29/18 14:03 Dose: 250 mls/hr Zoledronic Acid 4 mg/ Premix 100 mls @ 400 mls/hr IV ONETIME ONE Stop: 01/29/18 17:14 Last Admin: 01/29/18 17:23 Dose: 400 mls/hr Dextrose/Sodium Chloride (Dextrose 5%-1/2 Ns) 1,000 mls @ 125 mls/hr IV ASDIRECTED [facility] Last Admin: 01/30/18 09:30 Dose: 125 mls/hr Insulin Human Regular (Novolin R) 5 unit IVPUSH ONETIME ONE Stop: 01/30/18 09:04 Last Admin: 01/30/18 10:04 Dose: 5 units Ketorolac Tromethamine (Toradol) 15 mg IVPUSH ONETIME ONE Stop: 01/29/18 08:11 Last Admin: 01/29/18 08:45 Dose: 15 mg Mirtazapine (Remeron) 15 mg PO BEDTIME [facility] Last Admin: 01/29/18 21:38 Dose: 15 mg Morphine Sulfate (Morphine) 2 mg IVPUSH Q2H PRN PRN Reason: Pain (severe 7-10) Stop: 01/30/18 11:42 Last Admin: 01/29/18 19:57 Dose: 2 mg Morphine Sulfate (Morphine) 2 - 5 mg IVPUSH Q2H PRN PRN Reason: Pain (severe 7-10) Stop: 01/30/18 11:42 Ondansetron HCl (Zofran Odt) 4 mg PO Q4H PRN PRN Reason: nausea, able to take PO Sodium Polystyrene Sulfonate (Kayexalate) 15 gm PO ONETIME ONE Stop: 01/30/18 08:55 Last Admin: 01/30/18 09:33 Dose: 15 gm - Exam Quality Assessment: Supplemental Oxygen, Urine Catheter General: Alert (somewhat, not very verbally responsive. Eyes open and yells with pain. ), Cooperative, Mild Distress (pain upon movement), Lethargic, Other (pallor and severe cachexia noted) Lungs: Crackles (throughout) Cardiovascular: Regular Rate, Regular Rhythm GI/Abdominal Exam: Normal Bowel Sounds, Soft, Tender Extremities: Normal Inspection, Normal Range of Motion, Non-Tender, No Pedal Edema, Normal Capillary Refill Skin: Ecchymosis (bruising to both lower legs with abrasions. ) Neurological: No New Focal Deficit - Problem List & Annotations (1) Failure to thrive SNOMED Code(s): 49036233 Code(s): ZTT9298 - Status: Acute Priority: High Current Visit: Yes Qualifiers: Failure to thrive age range: in adult Qualified Code(s): R62.7 - Adult failure to thrive (2) Hyperkalemia SNOMED Code(s): 77116222 Code(s): E87.5 - HYPERKALEMIA Status: Acute Current Visit: Yes (3) Community acquired pneumonia SNOMED Code(s): 285894631 Code(s): J18.9 - PNEUMONIA, UNSPECIFIED ORGANISM Status: Acute Priority: High Current Visit: Yes Qualifiers: Laterality: left Lung location: unspecified part of lung Qualified Code(s ): J18.9 - Pneumonia, unspecified organism (4) Protein malnutrition SNOMED Code(s): 942234120 Code(s): E46 - UNSPECIFIED PROTEIN-CALORIE MALNUTRITION Status: Acute Current Visit: Yes (5) Lung mass SNOMED Code(s): 512647141 Code(s): R91.8 - OTHER NONSPECIFIC ABNORMAL FINDING OF LUNG FIELD Status: Acute Current Visit: Yes (6) Hypercalcemia of malignancy SNOMED Code(s): 24605407 Code(s): E83.52 - HYPERCALCEMIA Status: Acute Priority: High Current Visit: Yes (7) End stage chronic obstructive pulmonary disease SNOMED Code(s): 054039732 Code(s): J44.9 - CHRONIC OBSTRUCTIVE PULMONARY DISEASE, UNSPECIFIED Status : Chronic Priority: Medium Current Visit: Yes (8) Oxygen dependent SNOMED Code(s): 013868862993 Code(s): Z99.81 - DEPENDENCE ON SUPPLEMENTAL OXYGEN Status: Chronic Current Visit: Yes (9) Chronic respiratory failure SNOMED Code(s): 46450369 Code(s): J96.10 - CHRONIC RESPIRATORY FAILURE, UNSP W HYPOXIA OR HYPERCAPNIA Status: Chronic Current Visit: Yes Qualifiers: Respiratory failure complication: hypoxia Qualified Code(s): J96.11 - Chronic respiratory failure with hypoxia - Problem List Review Problem List Initiated/Reviewed/Updated: Yes - My Orders Last 24 Hours: My Active Orders 01/30/18 08:46 Telemetry Monitoring [Cardiac Monitoring] [RC] . DIRECTED 01/30/18 10:36 Resuscitation Status Routine 01/30/18 10:37 Psychology Lecturer Discontinue [Cardiac Monitoring Discontinue] [RC] Click to Edit 01/30/18 10:39 LORazepam [Ativan] 1 mg IVPUSH Q4H PRN 01/30/18 10:40 Consult to Hospice [CONS] Routine Comfort Measures [OM.PC] Routine 01/30/18 10:52 Hyoscyamine [Hyomax-SL] 0.125 mg SL Q6H PRN 01/30/18 12:38 Urinary Catheter Assessment [RC] ASDIRECTED 01/30/18 12:45 Insert Goldberg Catheter [Insert Urinary Catheter] [OM.PC] Q24H 01/30/18 19:07 Morphine See Dose Instructions IVPUSH Q1H PRN - Plan Plan:: 62-year-old male admitted 01/29/18 for suspected community acquired pneumonia and failure to thrive found to have severe hypercalcemia with past medical history of COPD and long-term smoking. 1. Failure to thrive/lung mass: Continue palliative care. Appears severely cachectic, 64 lbs. Solitary left perihilar 5.7 cm pulmonary mass consistent with primary lung cancer, the mass contacts and invades the mediastinum and left hilum but otherwise there were no enlarged mediastinal lymph nodes or evidence of distal metastatic disease. There was also findings of hyperinflation of the lungs evident of emphysema. Continue Morphine, Ativan for anxiety, dyspnea, agitation. Will consult Hospice and case management to assist with placement in SNF, but is imminent. 2.Severe COPD with chronic respiratory failure and hypoxia: Continues on home oxygen of 2 L per nasal cannula. Continue DuoNebs PRN. VTE prophylaxis: none, Hospice Dispo:3-4 days pending
--- NOTE | 2018-01-31 13:19 | PCM.DCSUM1 ---
Discharge Summary - Hospital Course Brief History: 62-year-old male presenting to emergency department by EMS with chief complaint of increasing shortness of breath, fatigue, and loss of appetite for multiple weeks with past medical history of severe COPD on home O2 , BPH, and chronic back pain. Patient presented to emergency department by ambulance after his called secondary to patient having increased shortness of breath. He was also noted to be very weak and could barely talk. states that he has been not eating for the past several weeks and only drinking in some fluids. He denies any chest pain, palpitations, fever, chills, diarrhea, syncopal episodes, or focal neurologic deficits. Patient has a history of severe COPD and is on home oxygen from anywhere from 2-4 L per nasal cannula. He is treated at the [facility] Emergency department: Leukocytosis of 18.8 3K, severe hypercalcemia of 18.1 with albumin low at 3.0 resulting in corrected calcium of 18.9. Chest x-ray revealing markedly hyperinflated findings consistent with COPD with moderate emphysematous changes. There was also a moderately large sized masslike opacity projected in the left mid chest medially that covers 8-9 cm most consistent with mass and/or adenopathy. Malignancy could not be excluded specifically a primary lung carcinoma with left hilar adenopathy. CT with IV contrast was suggested. There were also components of pneumonia in the left perihilar region. In addition there are small nodular opacities right mid lung lateral that were nonspecific. Patient was admitted for suspected community acquired pneumonia, failure to thrive, and acute on chronic respiratory failure. - Discharge Data Discharge Date: 01/31/18 Discharge Disposition: 20 Preliminary Cause of *Q: Other_Special Instruction (Lung malignancy) Condition: - Discharge Diagnosis/Problem(s) (1) Lung malignancy SNOMED Code(s): 253417229 ICD Code: C34.90 - MALIGNANT NEOPLASM OF UNSP PART OF UNSP BRONCHUS OR LUNG Status: Acute Current Visit: Yes Qualifiers: Laterality: left Lung location: hilum of lung Qualified Code(s): C34.02 - Malignant neoplasm of left main bronchus (2) Lung mass SNOMED Code(s): 284308601 ICD Code: R91.8 - OTHER NONSPECIFIC ABNORMAL FINDING OF LUNG FIELD Status: Acute Current Visit: Yes (3) Protein malnutrition SNOMED Code(s): 161553185 ICD Code: E46 - UNSPECIFIED PROTEIN-CALORIE MALNUTRITION Status: Acute Current Visit: Yes (4) Failure to thrive SNOMED Code(s): 36318879 ICD Code: YOU1037 - Status: Acute Priority: High Current Visit: Yes Qualifiers: Failure to thrive age range: in adult Qualified Code(s): R62.7 - Adult failure to thrive (5) Hypercalcemia of malignancy SNOMED Code(s): 94820267 ICD Code: E83.52 - HYPERCALCEMIA Status: Acute Priority: High Current Visit: Yes (6) Hyperkalemia SNOMED Code(s): 58202193 ICD Code: E87.5 - HYPERKALEMIA Status: Acute Current Visit: Yes (7) Community acquired pneumonia SNOMED Code(s): 030590170 ICD Code: J18.9 - PNEUMONIA, UNSPECIFIED ORGANISM Status: Acute Priority : High Current Visit: Yes Qualifiers: Laterality: left Lung location: unspecified part of lung Qualified Code(s ): J18.9 - Pneumonia, unspecified organism (8) End stage chronic obstructive pulmonary disease SNOMED Code(s): 491868204 ICD Code: J44.9 - CHRONIC OBSTRUCTIVE PULMONARY DISEASE, UNSPECIFIED Status : Chronic Priority: Medium Current Visit: Yes (9) Oxygen dependent SNOMED Code(s): 771916080117 ICD Code: Z99.81 - DEPENDENCE ON SUPPLEMENTAL OXYGEN Status: Chronic Current Visit: Yes (10) Chronic respiratory failure SNOMED Code(s): 70706626 ICD Code: J96.10 - CHRONIC RESPIRATORY FAILURE, UNSP W HYPOXIA OR HYPERCAPNIA Status: Chronic Current Visit: Yes Qualifiers: Respiratory failure complication: hypoxia Qualified Code(s): J96.11 - Chronic respiratory failure with hypoxia - Patient Summary/Data Consults: Consultations 01/30/18 10:40 Consult to Hospice [CONS] Routine - Discharge Plan Home Medications: Home Meds Albuterol [Ventolin HFA] 1 puff INH ASDIRECTED 01/29/18 [History] Cyclobenzaprine [Flexeril] 5 mg PO TID 01/29/18 [History] Ipratropium/Albuterol Sulfate [Combivent Respimat Inhal [place]] 1 puff INH ASDIRECTED 01/29/18 [History] Mirtazapine 1 tab PO BEDTIME 01/29/18 [History] Tamsulosin [Flomax] 1 cap PO DAILY 01/29/18 [History] Referrals: PCP,Not In Area [Primary Care Provider] - - Discharge Summary/Plan Comment DC Time >30 min.: No Discharge Summary/Plan Comment: Cause of : Lung malignancy greater than 3 months. Secondary causes of : Acute on Chronic respiratory failure with hypoxia Palliative care Hyperkalemia Hypercalcemia of malignancy Failure to thrive in the adult Severe cachexia YO Community acquired pneumonia secondary to lung malignancy Protein malnutrition End stage severe COPD- oxygen dependent. Ovidio was admitted secondary to failure to thrive with a suspected lung malignancy. He initially was started on antibiotics for suspected community acquired pneumonia and hypercalcemia. His prognosis was very poor and labwork continued to worsen on day [address] Eng and I spoke with , Chandrika yesterday morning. She and Ovidio had spoke in the past and he requested no "heroic measures or aggressive treatment", which included chemotherapy or CPR. He was placed on comfort measures and palliative care yesterday morning. Morphine provided for pain IV. He was kept comfortable. This afternoon, on nursing rounds he was noted to be very pale and have no pulse and not breathing. I was called to room and at that time , Chandrika, son and brother in law entered room. at 1310 Ovidio was pronounced , he had no pulse, heartbeat and was not breathing. Family made aware and pastoral care called to room. All questions and concerns addressed. Family remained at bedside. Dr Eng notified as well at this time. - General Info Date of Service: 01/31/18 - Patient Data Vitals - Most Recent: Last Vital Signs Temp 97.9 F 01/31/18 08:47 Pulse 89 01/31/18 08:47 Resp 16 01/31/18 08:47 BP 73/57 L 01/31/18 08:47 Pulse Ox 97 01/31/18 08:47 Weight - Most Recent: 36.287 kg I&O - Last 24 hours: Intake & Output 01/30/18 01/31/18 01/31/18 22:59 06:59 14:59 Intake Total 400 10 Output Total 500 110 Balance -100 -100 TAMANNA Results - Last 24 hrs: Microbiology 01/29/18 10:53 Aerobic Blood Culture - Preliminary Blood - Venous - Lab Draw NO GROWTH AFTER 2 DAYS Anaerobic Blood Culture - Final Med Orders - Current: Current Medications Albuterol/Ipratropium (Duoneb 3.0-0.5 Mg/3 Ml) 3 ml NEB Q6HRRT PRN PRN Reason: Shortness of Breath Last Admin: 01/30/18 15:44 Dose: 3 ml Hyoscyamine (Hyomax-Sl) 0.125 mg SL Q6H PRN PRN Reason: secretions Last Admin: 01/30/18 12:13 Dose: 0.125 mg Lorazepam (Ativan) 1 mg IVPUSH Q4H PRN PRN Reason: agitation/anxiety Morphine Sulfate (Morphine) 0 mg IVPUSH Q1H PRN PRN Reason: Pain (severe 7-10) Last Admin: 01/31/18 12:29 Dose: 2 mg Nicotine (Habitrol) 7 mg TRDERM Q24H RASHIDA Last Admin: 01/31/18 08:17 Dose: 7 mg Ondansetron HCl (Zofran) 4 mg IVPUSH Q4H PRN PRN Reason: Nausea Sodium Chloride (Saline Flush) 10 ml FLUSH ASDIRECTED PRN PRN Reason: Keep Vein Open Sodium Chloride (Saline Flush) 2.5 ml FLUSH ASDIRECTED PRN PRN Reason: Keep Vein Open Discontinued Medications Acetaminophen (Tylenol) 650 mg PO Q4H PRN PRN Reason: Pain (Mild 1-3)/fever Hydrocodone Bitart/Acetaminophen ([place] 325-5 Mg) 1 tab PO Q4H PRN PRN Reason: Pain (moderate 4-6) Albuterol (Ventolin Hfa) 8 gm INH ASDIRECTED [facility] Albuterol/Ipratropium (Duoneb 3.0-0.5 Mg/3 Ml) 3 ml NEB ONETIME ONE Stop: 01/29/18 08:11 Last Admin: 01/29/18 08:53 Dose: 3 ml Albuterol/Ipratropium (Combivent Respimat) 4 gm INH ASDIRECTED [facility] Calcitonin [place] (Miacalcin) 140 units SUBCUT ONETIME ONE Stop: 01/29/18 17:01 Last Admin: 01/29/18 17:40 Dose: 140 units Cyclobenzaprine HCl (Flexeril) 5 mg PO TID [facility] Last Admin: 01/30/18 06:27 Dose: Not Given Dextrose/Water (Dextrose 50% In Water) 50 ml IVPUSH ONETIME ONE Stop: 01/30/18 09:04 Last Admin: 01/30/18 09:33 Dose: 50 ml Heparin Sodium (Porcine) (Heparin Sodium) 5,000 units SUBCUT Q12H [facility] Last Admin: 01/30/18 01:14 Dose: Not Given Sodium Chloride (Normal Saline) 1,000 mls @ 999 mls/hr IV .Bolus ONE Stop: 01/29/18 09:10 Last Admin: 01/29/18 08:49 Dose: 250 mls/hr Ceftriaxone Sodium/Dextrose 1 (gm/ Premix) 50 mls @ 100 mls/hr IV ONETIME ONE Stop: 01/29/18 10:48 Last Admin: 01/29/18 10:58 Dose: 100 mls/hr Sodium Chloride (Normal Saline) 1,000 mls @ 250 [facility] Last Admin: 01/30/18 02:50 Dose: 250 mls/hr Azithromycin 500 mg/ Sodium (Chloride) 100 mls @ 100 mls/hr IV Q24H [facility] Last Admin: 01/29/18 14:42 Dose: Not Given Ceftriaxone Sodium/Dextrose 1 (gm/ Premix) 50 mls @ 100 mls/hr IV Q24H [facility] Last Admin: 01/30/18 10:10 Dose: 100 mls/hr Azithromycin 500 mg/ Sodium (Chloride) 250 mls @ 250 mls/hr IV Q24H [facility] Last Admin: 01/29/18 14:03 Dose: 250 mls/hr Zoledronic Acid 4 mg/ Premix 100 mls @ 400 mls/hr IV ONETIME ONE Stop: 01/29/18 17:14 Last Admin: 01/29/18 17:23 Dose: 400 mls/hr Dextrose/Sodium Chloride (Dextrose 5%-1/2 Ns) 1,000 mls @ 125 mls/hr IV ASDIRECTED [facility] Last Admin: 01/30/18 09:30 Dose: 125 mls/hr Insulin Human Regular (Novolin R) 5 unit IVPUSH ONETIME ONE Stop: 01/30/18 09:04 Last Admin: 01/30/18 10:04 Dose: 5 units Ketorolac Tromethamine (Toradol) 15 mg IVPUSH ONETIME ONE Stop: 01/29/18 08:11 Last Admin: 01/29/18 08:45 Dose: 15 mg Mirtazapine (Remeron) 15 mg PO BEDTIME RASHIDA Last Admin: 01/29/18 21:38 Dose: 15 mg Morphine Sulfate (Morphine) 2 mg IVPUSH Q2H PRN PRN Reason: Pain (severe 7-10) Stop: 01/30/18 11:42 Last Admin: 01/29/18 19:57 Dose: 2 mg Morphine Sulfate (Morphine) 2 - 5 mg IVPUSH Q2H PRN PRN Reason: Pain (severe 7-10) Stop: 01/30/18 11:42 Ondansetron HCl (Zofran Odt) 4 mg PO Q4H PRN PRN Reason: nausea, able to take PO Sodium Polystyrene Sulfonate (Kayexalate) 15 gm PO ONETIME ONE Stop: 01/30/18 08:55 Last Admin: 01/30/18 09:33 Dose: 15 gm *Q Meaningful Use (DIS) - VTE *Q VTE Criteria *Q: - Stroke *Q Stroke Criteria *Q: - AMI *Q AMI Criteria *Q:
== END 2018-01-31 15:35 | disposition expired | DRG 193 ==
LOC: MW.ED 08:07 → MW.MS 10:09
PROVIDERS: ADMIT Family Medicine; ATTEND Family Medicine
DX: J18.9 Pneumonia, unspecified organism (principal); J96.21 Acute and chronic respiratory failure with hypoxia; J44.9 Chronic obstructive pulmonary disease, unspecified; R64 Cachexia; C34.02 Malignant neoplasm of left main bronchus; E46 Unspecified protein-calorie malnutrition; N17.9 Acute kidney failure, unspecified; Z68.1 Body mass index [BMI] 19.9 or less, adult; R62.7 Adult failure to thrive; Z87.891 Personal history of nicotine dependence; E83.52 Hypercalcemia; Z99.81 Dependence on supplemental oxygen; N40.0 Benign prostatic hyperplasia without lower urinary tract symptoms; G89.29 Other chronic pain; M54.9 Dorsalgia, unspecified; R53.1 Weakness; E87.5 Hyperkalemia; Z79.899 Other long term (current) drug therapy; Z51.5 Encounter for palliative care
CPT/HCPCS: 36415; 71045; 80053; 83735; 84100; 85025; 87040; 94640; 96361; 96375; 99285; J1885; J7040; 51702; 82310; 82962; 83970; 93005; 96365; 99284; A9270-GY; J0456; J0630; J0696; J1644; J1815-GY; J2270; J3489; J7042; J7050; J7060